=== PATIENT | male | born 1995 | race American Indian/Alaskan Native ===

== ENCOUNTER 2022-06-12 10:02 | Emergency (ER) | payer OTHER ==
[~2022-06-12] VITALS: Ht 172.7 cm; Wt 165.9 kg
[2022-06-12 10:25] VITALS: BP 112/77
== END 2022-06-12 11:26 | disposition home or self-care (01) ==
LOC: ED 10:02
DX: M25.512 Pain in left shoulder (principal); Z28.311 Partially vaccinated for COVID-19; V43.52XA Car driver injured in collision with other type car in traffic accident, initial encounter; Y92.410 Unspecified street and highway as the place of occurrence of the external cause